=== PATIENT | male | born 1940 | race Caucasian/White ===

== ENCOUNTER 2024-05-31 03:42 | Inpatient (IN) | payer OTHER, SELFPAY ==
[2024-05-30 23:43] VITALS: BP 175/78
[2024-05-31] VITALS (14 sets, daily range): BP systolic 117–156; BP diastolic 54–73; PULSE 55; O2SAT 97; BMI 27.8
[2024-05-31] MEDS: NSS 500 IV (00:23)
[2024-05-31 00:37] LABS: % Basophils 0.7 % (0-2); % Eosinophils 3.7 % (0-6); % Immature Granulocytes 2.3 % (0-0.5); % Lymphocytes 14.4 % (20.5-51.1); % Monocytes 7.5 % (1.7-9.3); % Neutrophils 71.4 % (42.2-75.2); Absolute Basophils 0.1 10^3/uL (0-0.2); Absolute Eosinophils 0.5 10^3/uL (0-0.7); Absolute Immature Granulocytes 0.3 10^3/uL (0-0.05); Absolute Lymphocytes 1.8 10^3/uL (1.2-3.4); Absolute Monocytes 0.9 10^3/uL (0.1-0.6); Absolute Neutrophils 8.7 10^3/uL (1.4-6.5); Hematocrit 42.4 % (39.0-52.0); Hemoglobin 15.3 g/dL (13.0-18.0); Mean Corp Hgb Conc. 36.1 g/dL (33.0-37.0); Mean Corpuscular Hgb 31.1 pg (27.0-31.0); Mean Corpuscular Volume 86.2 fL (80.0-94.0); Mean Platelet Volume 10.5 fL (7.4-10.4); Nucleated Red Blood Cells % 0 % (-); Platelet Count 185 10^3/uL (130-400); Red Blood Cell Count 4.92 10^6/uL (4.70-6.10); Red Cell Dist. Width 12.8 % (11.5-14.5); White Blood Cell Count 12.2 10^3/uL (4.8-10.8)
--- NOTE | 2024-05-31 00:40 | EDRN ---
Pt had vomiting and diarrhea 1 week and has been feeling well the past few days. Pt says he notes he has been weak with decreased appetite. Pt was watching the Superbowl and suddenly developed R side abdominal pain radiating into his back. Pain
is dull and constant. Pt took 3 ibuprofen and couple sips of Gatorade. Pt had 'a little' BM tonight and says last normal BM was 2 days ago. Nausea, no vomiting. Pt notes when he urinates it is 'a little orange.' No hx similar symptoms. Pt
denies cp, sob, fever/chills/cough, diarrhea, constipation, dizziness.
--- NOTE | 2024-05-31 00:49 | ED.GENMED ---
History of Present Illness
General
Chief Complaint: Abdominal Pain
Source: patient and spouse
Exam Limitations: none
Time Seen by Provider: 05/30/24 23:52
History of Present Illness
History of Present Illness:
83-year-old male complaining of abdominal pain with some radiation to the right side and back. Started late this afternoon. Feels generally weak. No chest pain shortness of breath no syncope. No change in bowels. Last week he had the norovirus.
The symptoms had mostly resolved.
Past History
Past History
ED Past Medical History: HTN, Hypercholesterolemia and NIDDM
ED Past Surgical History: Orthopedic
Review of Systems
Review of Systems
All Other Systems: Not applicable
Constitutional: Denies fever
Respiratory: Reports no symptoms
Cardiac: Reports no symptoms
Phy Exam
Physical Exam
Physical Exam:
GENERAL: Alert and oriented in no apparent distress
EYE: Orbits normal.
NECK: Supple
CARDIAC: Regular rate and rhythm without any obvious murmurs.
LUNGS: Clear breath sounds,normal
ABDOMEN: Soft, mild epigastric tenderness. No rebound or guarding no mass or hernia
NEUROLOGICAL: Alert and oriented , grossly non-focal
SKIN: Warm and dry, no rash or lesion, no discoloration, skin intact.
MUSCULOSKELETAL: No edema,no deformity.Good color
PSYCH: Normal and appropriate interaction.
Course
Orders/Labs/Results
Orders:
Orders
05/30/24 23:52
IV Insert/Care/Rem.- Treatment PRN
Complete Blood Count/With Diff Urgent
Urinalysis Reflex To Culture Urgent
Date Specimen was Collected: 05/31/24
Time Specimen was Collected: 04:06
0.9% Sodium Chloride 500 ml [Nss] 500 ml IV BOLUS
05/31/24 00:02
CT Abd/Pel (IV only)-DH only Urgent
Reason For Exam: Lower abdominal pain
05/31/24 00:10
Electrocardiogram (*1) Stat
Reason for Study: Abdominal Pain
EKG- Treatment ONCE
05/31/24 01:00
HYDROmorphone [Dilaudid] 0.25 mg IV NOW STA
Ondansetron Injectable [Zofran] 4 mg IV NOW STA
05/31/24 01:05
Comprehensive Metabolic Panel Urgent
Lipase Urgent
TSH Reflex To Free T4 Urgent
Comment: ADD ON
05/31/24 02:26
HYDROmorphone [Dilaudid] 0.25 mg IV NOW STA
Piperacillin/Tazo 3.375 Gram [Zosyn] 3.375 gram in 50 ml IV NOW
05/31/24 03:23
Admit/Transfer Patient As Directed
Co-Sign Provider:
Level of Care: Inpatient admission
Assign to:: Telemetry
Physician / Group: Nacho
Diagnosis: Abd Pain / Cholelithiasis
Reason for Telemetry: Arrhythmia
Date to Stop Telemetry: 06/03/24
Time to Stop Telemetry: 11:00
Reason for Hospitalization: Abd Pain / Cholelithiasis
Expected length of stay greater than two midnights?: Yes
ELOS- Estimated Length of Stay in days: 2
I certify the patient meets the requirements for IP care: Yes
PRN Pain Medication Management As Directed
May give lesser potent ordered pain med per pt: Yes
preference::
Protocol:: Medication orders for pain may be administered in a
manner that supports deferring to patient preference
when the pt is:
- Requesting an ordered lesser potent pain medication.
Least to most potent pain medications are defined
as: acetaminophen < NSAID < tramadol < opioids
(morphine, oxycodone, hydromorphone).
- Requesting a lesser dose of the same medication IF
ORDERED.
- Requesting a less intrusive route of administration
if both routes are prescribed by the provider (PO <
IV).
05/31/24 03:24
Code Status As Directed
Resuscitation Status: Full Code
05/31/24 03:32
Troponin I Urgent
05/31/24 Breakfast
NPO
Allow oral meds: Yes
Allow clear liquids: Sips of Clears
Levothyroxine [Synthroid] 75 mcg PO DAILY@0600
05/31/24 06:06
Acetaminophen [Tylenol] 650 mg PO Q4HPRN PRN
Dextrose 50%-Water [Dextrose 50% Syringe] 12.5 grams IV [id number] PRN
Glucagon [GlucaGen] 1 mg IM PRN PRN
HYDROmorphone [Dilaudid] 0.5 mg IV Q4HPRN PRN
Lactated Ringers [Lr] 1,000 ml IV 100 mls/hr
Ondansetron Injectable [Zofran] 4 mg IV Q6HPRN PRN
05/31/24 06:06
Activity As Directed
Activity Level: Ambulate
With Assistance
Bedside Glucose Monitoring As Directed
Frequency: AC&HS
Additional Instructions:: Change to q6h if pt on TPN, tube feeding or not eating
Bladder Scan As Directed
Follow Bladder Retention/Intermittent Cath Algorithm?: Yes
PRN if no void in __ hours: 6
Frequency: Per Retention Algorithm
If Bladder Scan Result >: 400
then:: Straight cath
EKG with chest pain [ECG as needed] As Directed
ECG as needed for:: Chest Pain
I/O [Intake/ Output] As Directed
Frequency: Per unit guidelines
Pneumatic Compression Sleeves As Directed
Type: Knee high
Straight Cath As Directed
Frequency: Per Retention Algorithm
Additional Instructions: straight cath as needed per acute urinary retention algorithm for 24 hrs
Additional Instructions: for bladder scan greater than 400 mL
Vital Signs As Directed
Frequency: Per unit guidelines
Weight As Directed
Frequency: Daily
Oxygen Therapy [O2 Therapy] [RESP] Routine
Titrate/Wean O2 to maintain O2 sat greater than (%): 94
Ot Eval And Treat Routine
PT Consult [Pt Eval And Treat] Routine
Activity Level: Ambulate
With Assistance
DX Deep Vein Thrombosis Video Routine
05/31/24 07:30
Insulin Aspart Corrective Low [Novolog Flexpen-Low Resistance] See Protocol SC AC
05/31/24 08:00
Pantoprazole [Protonix IV] 40 mg IV DAILY
05/31/24 10:00
Piperacillin/Tazo 2.25 Gram [Zosyn] 2.25 grams in 50 ml IV Q6H
06/01/24 05:13
Glycohemoglobin (HgbA1c) IN AM
06/03/24 11:00
DC Protocol for Telemetry ONCE
Abnormal Lab Results
05/31/24 05/31/24
00:21 01:05
WBC 12.2 H 10^3/uL
(4.8-10.8)
MCH 31.1 H pg
(27.0-31.0)
MPV 10.5 H fL
(7.4-10.4)
Abs Immat Gran (auto) 0.3 H 10^3/uL
(0-0.05)
Absolute Neuts (auto) 8.7 H 10^3/uL
(1.4-6.5)
Absolute Monos (auto) 0.9 H 10^3/uL
(0.1-0.6)
Immature Gran % 2.3 H %
(0-0.5)
Lymphocytes % 14.4 L %
(20.5-51.1)
Creatinine 1.7 H mg/dL
(0.7-1.3)
Glucose 127 H mg/dl
(70-99)
Albumin 3.4 L g/dl
(3.5-5.0)
Lipase 429 H U/L
(23-300)
05/31/24 00:21
05/31/24 01:05
Vital Signs
Initial and Last Documented VS:
Initial Vital Signs
Temp Pulse Resp BP Pulse Ox
98.7 F 50 20 175/78 98
05/30/24 23:43 05/30/24 23:43 05/30/24 23:43 05/30/24 23:43 05/30/24 23:43
Last Documented Vital Signs
Temp Pulse Resp BP Pulse Ox
97.6 F 56 16 113/52 95
06/02/24 11:20 06/02/24 11:20 06/02/24 11:20 06/02/24 11:20 06/02/24 11:20
MDM/Problems Addressed
Differential Diagnosis Includes:
Patient with right-sided abdominal pain radiating to the back. Differential would include enteritis, cholecystitis. Doubt appendicitis. Kidney stone in the differential. Doubt vascular issue. Workup in progress
*Radiology
Radiology exam reviewed: radiology read reviewed (No acute findings on CT. Gallstones.)
*Pulse Oximetry
Patient hypoxic: no
*EKG
Interpreted by ED Provider?: Yes
Interpretation: abnormal
Comparison EKG: no comparison EKG present
Heart Rate: 50
Rate: bradycardiac
Rhythm: sinus
[place]: normal axis
Interval: normal interval
QRS Pattern: normal QRS
Ischemia: no ischemia
*Critical Care Note
Total Time (30-74mins, 75-104mins- exclusive of procedures): Not Applicable
Data Reviewed
Review of Other/Old Records Reveals: Labs and Testing
Update Note
Update Note:
Patient with ongoing discomfort pointing to the upper abdomen with some radiation to the back. Although CT scan does not show acute cholecystitis. He does have gallstones, leukocytosis, mild lipase elevation and symptoms consistent with a
cholecystitis. Will admit for pain management IV antibiotics and further workup. Will check troponin for completeness however highly doubt cardiac
ED Attending Note
-
Portions of this chart may have been created with voice recognition software.� Occasional wrong word or��sound alike� substitutions may have occurred due to the inherent limitations of voice recognition software.
Discharge Plan
Departure
Patient Disposition: Admit
Date of Disposition: 05/31/24
Time of Disposition: 02:28
Presentation/result/management discussed w/ accepting MD/DO: Hospitalist
Discharge Problem:
Intractable abdominal pain, Suspect acute cholecystitis
Interventions
Interventions:
*Risk Screen - Suicide Last Done: 05/31/24 08:00
*General Assessment Last Done: 05/30/24 23:43
*Neglect/Abuse Screening Last Done: 05/30/24 23:43
ED- Fall Risk Assessment Last Done: 05/30/24 23:43
*ED COVID-19 Vaccine History Last Done: 05/31/24 08:00
*Nursing Disposition Last Done: 05/31/24 08:03
GC-Eiqhtq-Oucgboqhyf Assessment Last Done: 05/31/24 00:36
Discharge Date and Time
Discharge Date/Time: 05/31/24 08:03
[2024-05-31] MEDS: ZOFRAN 4 MG IV (01:08)
[2024-05-31] MEDS: DILAUDID 0.25 MG IV ×2 (01:09→02:34)
[2024-05-31 01:36] LABS: ALT (SGPT) 29 U/L (0-50); AST (SGOT) 22 U/L (17-59); Albumin 3.4 g/dl (3.5-5.0); Alkaline Phosphatase 74 U/L (38-126); Blood Urea Nitrogen 20 mg/dl (9-20); Calcium 8.8 mg/dl (8.4-10.2); Carbon Dioxide 27 mmol/L (22-30); Chloride 106 mmol/L (98-107); Estimated Creatinine Clearance 32 ml/min; Glucose 127 mg/dl (70-99); Lipase 429 U/L (23-300); Potassium 4.2 mmol/L (3.5-5.1); Sodium 138 mmol/L (135-145); Total Bilirubin 0.5 mg/dl (0.2-1.3); Total Protein 6.3 g/dl (6.3-8.2); eGFR 39.51
[2024-05-31] MEDS: ZOSYN 50 IV ×4 (02:44→21:20)
--- NOTE | 2024-05-31 03:26 | HPS.HSE ---
Family Physician
-
Family Physician: Elijah Dale
Chief Complaint
-
Abd Pain
History of Present Illness
Patient is an 83y M with PMH significant for hypertension and DM-II who presents to ED complaining of abdominal pain. Patient states that his pain started suddenly this evening. Pain is described as belt around his upper abdomen and mid-back,
just under the ribs. He denies any N/V this evening. Patient states that he had GI symptoms last week with N/V/D. These symptoms resolved about 2 days ago. He has not yet had a 'normal' BM. No fevers / chills. No urinary complaints.
Patient continues to report discomfort here in the ED.
CT scan was done of the abdomen / pelvis which shows gallstones but is otherwise unremarkable.
Medical History
Past Medical History
Past Medical History: Reports Other
Additional Past Medical History:
Hypertension
DM-II
Hypothyroidism
GERD / Howard's Esophagus
CKD III
Mild Dementia
Past Surgical History: Reports Other
Additional Past Surgical History:
Right TKA
Social History
Tobacco: Non-smoker
Alcohol: None
Drug: None
Family History
Family History: Not pertinent
Allergies / Home Medications
Allergies reflects when Allergies were last updated in [email or web address].
Home Medications with original date entered in [email or web address]
Allergy/Medication List:
Allergies
Allergy/AdvReac Type Severity Reaction Status Date / Time
empagliflozin Allergy Unknown Verified 05/30/24 23:42
[From Jardiance]
epinephrine Allergy Unknown Verified 05/30/24 23:42
Sympathomimetic A Allergy Vomiting Verified 05/30/24 23:42
*RETIRED-12/04/11
tropicamide Allergy Unknown Verified 05/30/24 23:42
Home Medications
donepezil 10 mg tablet 10 mg PO QPM 05/31/24
glipizide 2.5 mg tablet 2.5 mg PO QPM 05/31/24
levothyroxine 75 mcg tablet 75 mcg PO DAILY 05/31/24
metoprolol tartrate 25 mg tablet 25 mg PO BID 05/31/24
pravastatin 40 mg tablet 40 mg PO HS 05/31/24
Review of Systems
-
History Source: Patient
A 12 point ROS was completed and negative except as noted: Yes
Constitutional: Reports Fatigue; Denies Fever or Chills
Respiratory: Denies Cough or Trouble Breathing
Cardiac: Denies Chest Pain or Palpitations
Abdomen/GI: Reports Abdominal Pain; Denies Nausea, Vomiting, Diarrhea, Constipated, Bloody Stools or Black Stools
: Reports Flank Pain; Denies Dysuria or Frequency
Musculoskeletal: Denies Edema
Neurological: Denies Dizzy or Headache
Physical Exam
Vital Signs
Vital Signs
Temp Pulse Resp BP Pulse Ox
98.7 F 46 16 128/57 96
05/30/24 23:43 05/31/24 03:00 05/31/24 02:34 05/31/24 03:00 05/31/24 03:00
Physical Exam
General: Other (83y M in no acute distress.)
HEENT: Moist mucous membranes and PERRLA
Respiratory: Clear; No Wheezes, Rales or Rhonchi
Cardiac: S1/S2 and Regular Rhythm; No Murmur
GI: Soft, Non Distended, Normal Bowel Sounds and Other (Mildly, diffusely tender. No focal tenderness. No rebound / guarding.)
Genito-urinary: No costovertebral tender
Musculoskeletal: No Clubbing, No Cyanosis and No Edema
Neuro: Awake and Alert
Laboratory Results
-
05/31/24 00:21
05/31/24 01:05
Laboratory Results
Total Bilirubin 0.5 mg/dl (0.2-1.3) 05/31/24 01:05
AST 22 U/L (17-59) 05/31/24 01:05
ALT 29 U/L (0-50) 05/31/24 01:05
Alkaline Phosphatase 74 U/L (38-126) 05/31/24 01:05
Troponin I Cancelled 05/31/24 02:34
Lipase 429 U/L (23-300) H 05/31/24 01:05
Impression/Plan
-
A/P: Patient is an 83y M with PMH significant for HTN and DM-II who presents to ED complaining of abdominal pain.
Abdominal Pain
Cholelithiasis
Recent Enteritis
- Admit for further evaluation and treatment.
- Labs unremarkable. Imaging shows gallstones but no other acute abnormality.
- Check abdominal US / RUQ in AM for further evaluation.
- Continue IV Zosyn for now.
- Supportive care with IVFs, pain control, etc.
- Follow for clinical changes.
Sinus Bradycardia
- Likely medication effect on metoprolol and donepezil.
- Hold both for now.
- Monitor on tele overnight.
Benign Hypertension
- Hold metoprolol acutely as noted above.
- Hydralazine PRN very high BP.
- Adjust regimen as needed for normotension.
DM-II
- Stable. Hold PO medications.
- Follow glucose and cover with SSI as needed.
- Update A1C.
CKD III
- Stable. Renal function is at / near known baseline.
- Outpatient records report baseline 1.5 - 1.8.
- Follow for any changes.
GERD / Howard's Esophagus
- Once daily PPI.
Mild Dementia
- Stable. Holding Aricept due to sinus bradycardia as noted above.
- Follow for any acute changes, delirium, etc.
DVT Prophylaxis: SCDs
Code Status: Full
[2024-05-31 04:21] LABS: Urine Bilirubin Negative (Negative); Urine Character Clear (Clear); Urine Color Yellow; Urine Glucose Negative (Negative); Urine Ketone Negative (Negative); Urine Leukocyte Negative (Negative); Urine Nitrite Negative (Negative); Urine Occult Blood Negative (Negative); Urine Specific Gravity 1.015 (<1.030); Urine Urobilinogen Negative (Neg - 1+)
[2024-05-31 04:24] LABS: Urine Albumin Trace (Neg - Trace)
[2024-05-31 04:32] LABS: Troponin I < 0.012 ng/ml
[2024-05-31] MEDS: LR 1000 IV (06:22)
[2024-05-31] MEDS: DILAUDID 0.5 MG IV ×2 (06:26→10:08)
[2024-05-31 07:10] LABS: TSH Reflex To Free T4 3.17 uIU/ml (0.47-4.68)
[2024-05-31] MEDS: SYNTHROID 75 MCG PO (07:47)
[2024-05-31 08:14] LABS: Glucose - Point of Care 131 mg/dl (70-99)
[2024-05-31] MEDS: PROTONIX IV 40 MG IV (08:17)
[2024-05-31] MEDS: NSS (PRESERVATIVE FREE) 10 ML IV (08:17)
[2024-05-31] MEDS: NOVOLOG FLEXPEN-LOW RESISTANCE SC ×3 (08:17→17:15)
[2024-05-31 12:22] LABS: Glucose - Point of Care 117 mg/dl (70-99)
--- NOTE | 2024-05-31 12:34 | CM ---
Adm dx - ABD pain/cholelithiasis
Met with pt and his at bedside
Pt reports he lives with his in a 2 story home; 1 step to enter. 13 steps to 2nd fl - + 1/2 bath on FF
Independent at baseline,occasionally forgetful, no device for ambulation, + drives
DME - none
SNF - denies past hx
HH - has had in past - unsure of agency
Has ride home at discharge
PCP - Elijah Debnotsophie
Pharm - [facility]
Sx consult - pending determination
Plan - anticipate home no needs vs w/HH
--- NOTE | 2024-05-31 12:43 | CON.GS ---
Addendum entered and electronically signed by Tom Dowling MD 05/31/24 12:55:
Patient seen and examined. Agree with assessment plan as documented below.
Patient is a 83 with a PMH of yo M mild dementia, GERD, HLD, hypothyroidism, NIDDM, and s/p RIGHT TKA who presents with approximately 24 hours of RUQ abdominal pain. Mr. Taylor states that he developed symptoms yesterday evening around 10 PM. He
notes a bandlike pressure and discomfort in his upper abdomen radiating to his back. Last week he had a GI bug with nausea and vomiting and diarrhea, but states that his symptoms improved for several days now. No fevers or chills. Denies any
jaundice or pale stools. He does report darker urine. He and his deny prior attacks of similar pain or discomfort.
Gen: NAD
Abd: soft, tender to palpation in the RUQ, positive Kat's sign, ND, non-peritoneal
Labs and CT scan imaging were reviewed
Patient is an 83 yo M p/w acute cholecystitis
The natural history and pathophysiology of biliary and stone disease was briefly reviewed. Workup thus far including labs and CT scan imaging was reviewed. Given his persistent discomfort recommend cholecystectomy. Patient and agree to
proceed.
Plan for laparoscopic cholecystectomy with possible cholangiogram. The procedure itself, as well as the risks, benefits, and alternatives was discussed. Specifically, we discussed the risks of bleeding, infection, injury to surrounding structures
(bowel, bile ducts), CBD injury, need for open procedure. Typical postprocedural recovery was discussed. All questions answered. Consent signed. Of note, was present for the encounter and agrees to proceed with above-noted procedure.
-- Laparoscopic cholecystectomy with cholangiogram
-- NPO, IVF
-- Antibiotics: Zosyn
-- Pain control: Tylenol, IV Dilaudid PRN
Original Note:
Medical History
-
Chief Complaint: RUQ pain
History of Present Illness:
Mr Taylor is an 83 yo male with a history of DM, hypothyroid, CKD and right TKA who presented through the ED with RUQ pain which began last night around 10pm. He reports that it radiates into his back and is quite severe. He denies nausea or
vomiting, bowel changes or fevers and chills. His is at bedside to assist with history and notes that he had a GI bug last week with nausea, vomiting and diarrhea but his symptoms have been resolved for several days now.
Past Medical History
Past Medical History: GERD (Howard's esophagus), Hypothyroidism, NIDDM and Other (mild dementia)
Past Surgical History: Orthopedic (right TKA)
Social History
Tobacco: Non-Smoker
Alcohol: None
Personal:
Living: With Family
Family History
Family History: Reviewed & Not Pertinent
Allergies / Home Medications
Allergy/AdvReac Type Severity Reaction Status Date / Time
empagliflozin Allergy Unknown Verified 05/30/24 23:42
[From Jardiance]
epinephrine Allergy Unknown Verified 05/30/24 23:42
Sympathomimetic A Allergy Vomiting Verified 05/30/24 23:42
*RETIRED-12/04/11
tropicamide Allergy Unknown Verified 05/30/24 23:42
�Medication �Instructions �Recorded �Confirmed �Type
donepezil 10 mg tablet 10 mg PO QPM 05/31/24 05/31/24 History
glipizide 2.5 mg tablet 2.5 mg PO QPM 05/31/24 05/31/24 History
levothyroxine 75 mcg tablet 75 mcg PO DAILY 05/31/24 05/31/24 History
metoprolol tartrate 25 mg tablet 25 mg PO BID 05/31/24 05/31/24 History
pravastatin 40 mg tablet 40 mg PO HS 05/31/24 05/31/24 History
Review of Systems
-
History Source: Patient and Family
All other systems: Negative unless noted
A 10 point review of systems was completed, and was negative except as per HPI.
Physical Exam
Vital Signs
Temp Pulse Resp BP Pulse Ox
97.9 F 54 16 143/68 94
05/31/24 10:55 05/31/24 10:55 05/31/24 10:55 05/31/24 08:00 05/31/24 10:55
05/30/24 05/31/24 06/01/24
06:59 06:59 06:59
Actual Weight 83 kg
Body Mass Index (BMI) 27.8
Lab Results
05/31/24 00:21
05/31/24 01:05
WBC 12.2 10^3/uL (4.8-10.8) H 05/31/24 00:21
Hgb 15.3 g/dL (13.0-18.0) 05/31/24 00:21
Hct 42.4 % (39.0-52.0) 05/31/24 00:21
Plt Count 185 10^3/uL (130-400) 05/31/24 00:21
Abs Immat Gran (auto) 0.3 10^3/uL (0-0.05) H 05/31/24 00:21
Neutrophils % 71.4 % (42.2-75.2) 05/31/24 00:21
Physical Exam
General: Well Developed and Well Nourished
HEENT: Moist Mucous Membranes
Respiratory: Non Labored Respirations
GI: Soft, Non Distended and Tender (RUQ)
Skin: Warm and Dry; Negative Jaundice
Neuro: Awake, Alert and Other (poor historian)
Data Reviewed
-
CT Scan: Image Personally Visualized and interpreted, Report Reviewed by me, Discussed with Physician, Discussed with Patient and Discussed with Family
Labs: Labs Reviewed by me, Discussed with Physician, Discussed with Patient and Discussed with Family
Old Records: Reviewed
Assessment / Plan
-
83 yo male with a history of DM, HTN, hypothyroid who presents with RUQ pain that began yesterday and radiates into his mid back. On exam he is markedly tender to the RUQ. Leukocytosis present with normal bilirubin. CT imaging reviewed with
gallstones noted. Given history and exam as well as CT imaging, suspect acute calculous cholecystitis. Afebrile with stable vital signs.
Will plan OR today for laparoscopic cholecystectomy
--Continue NPO
--Continue IV ABX
--No need for further imaging, will cancel US
--- NOTE | 2024-05-31 12:47 | W.SUR.PREOP ---
Pre-Operative Surgical Note
-
I have examined this patient prior to the performance of the scheduled procedure.
The patient's condition is unchanged from the time of the current History and
Physical and the patient is able to undergo the scheduled procedure.
--- NOTE | 2024-05-31 15:46 | W.IMMPOSTOP ---
Addendum entered and electronically signed by Tom Dowling MD 05/31/24 16:06:
Plan:
-- Antibiotics for 4 days post-op
-- Drain in place for at least 2 days
-- Clears for today, possible LFD tomorrow pending clinical picture
Original Note:
Surgical Immed Post Op Note
-
Primary Surgeon: Nitesh
Assisting Surgeon: BRITNEY Armenta
Pre-op Diagnosis: Acute cholecystitis
Post-op Diagnosis: Acute gangrenous cholecystitis
Procedure Performed: Laparoscopic cholecystectomy with IOC
Anesthesia Type: General
Specimen / Cultures:
1. Gallbladder
Estimated Blood Loss: 7 cc
Complications: None
Operative Findings:
1. Acutely inflamed, gangrenous GB with patchy necrosis and bile staining along entire wall, multiple small cholesterol stones
2. Critical view of safety
3. IOC with anatomy confirmed and no obvious evidence of filling defects
4. Artery and venous branch taken with clips, duct with clips
--- NOTE | 2024-05-31 15:50 | W.PN.HOSP.TC ---
Today's Communication/Plan
-
For upper scopic cholecystectomy with cholangiogram
Continue antibiotics
Remains n.p.o.
IV fluids
Analgesia
Hold oral glucose lowering medications
Assessment / Plan
Assessment / Plan
Impression/plan
Patient is an 83y M with PMH significant for HTN and DM-II who presents to ED complaining of abdominal pain.
Acute onset of right upper quad abdominal pain.
Exam consistent with right upper quadrant tenderness
CT scan with cholelithiasis
Noted with very mildly elevated lipase and normal LFT.
Clinical concern for biliary colic or acute cholecystitis.
Discussed with surgery.
Plan is for laparoscopic cholecystectomy with cholangiogram.
Continue IV Zosyn
Recent norovirus infection noted.
Sinus Bradycardia
- Likely medication effect on metoprolol and donepezil.
- Hold both for now.
- Monitor on tele overnight.
Benign Hypertension
- Hold metoprolol acutely as noted above.
- Hydralazine PRN very high BP.
- Adjust regimen as needed for normotension.
DM-II
- Stable. Hold PO medications.
- Follow glucose and cover with SSI as needed.
- Update A1C.
CKD III
- Stable. Renal function is at / near known baseline.
- Outpatient records report baseline 1.5 - 1.8.
- Follow for any changes.
GERD / Howard's Esophagus
- Once daily PPI.
Mild Dementia
- Stable. Holding Aricept due to sinus bradycardia as noted above.
- Follow for any acute changes, delirium, etc.
DVT Prophylaxis: SCDs
Code Status: Full
Anticipated Discharge: 24 - 48 hours
Subjective/Interval History
-
Date of Service: May 31, 2024
Objective Data
-
Vital Signs:
Vital Signs
Temp Pulse Resp BP Pulse Ox
97.9 F 54 16 143/68 94
05/31/24 10:55 05/31/24 10:55 05/31/24 10:55 05/31/24 08:00 05/31/24 10:55
Physical Exam
-
General: Well Developed and No Apparent Distress
HEENT: Normocephalic, Atraumatic and Moist Mucous Membranes
Respiratory: Clear to Auscultation
Cardiac: Regular Rhythm and S1/S2; Negative Murmur, Rub or Gallop
GI: Soft, Nondistended, Normal Bowel Sounds and Tender (Right upper quadrant tenderness); Negative Organomegaly
Rectal: Deferred by Provider
Musculoskeletal: No Clubbing, No Cyanosis and No Edema
Skin: Negative Rash
Neuro: Nonfocal/Grossly Intact
[2024-05-31 15:58] LABS: Glucose - Point of Care 160 mg/dl (70-99)
[2024-05-31] MEDS: NSS 1000 IV (17:04)
[2024-05-31] MEDS: LOPRESSOR 5 MG IV (17:05)
[2024-05-31 17:10] LABS: Glucose - Point of Care 192 mg/dl (70-99)
[2024-05-31] MEDS: LR IV (17:38)
[2024-05-31] MEDS: PRAVACHOL 40 MG PO (21:20)
[2024-05-31 21:31] LABS: Glucose - Point of Care 166 mg/dl (70-99)
[2024-06-01] VITALS (9 sets, daily range): BP systolic 109–150; BP diastolic 50–80; BMI 27.9
[2024-06-01] MEDS: LOPRESSOR IV ×2 (00:15→06:06)
[2024-06-01] MEDS: NSS 1000 IV ×2 (02:52→15:36)
[2024-06-01] MEDS: ZOSYN 50 IV ×4 (03:05→21:44)
[2024-06-01] MEDS: SYNTHROID 75 MCG PO (05:22)
[2024-06-01 05:44] LABS: % Basophils 0.1 % (0-2); % Eosinophils 0.1 % (0-6); % Immature Granulocytes 0.6 % (0-0.5); % Lymphocytes 8.4 % (20.5-51.1); % Monocytes 7.4 % (1.7-9.3); % Neutrophils 83.4 % (42.2-75.2); Absolute Immature Granulocytes 0.1 10^3/uL (0-0.05); Absolute Lymphocytes 1.3 10^3/uL (1.2-3.4); Absolute Monocytes 1.1 10^3/uL (0.1-0.6); Absolute Neutrophils 12.6 10^3/uL (1.4-6.5); Hematocrit 38.6 % (39.0-52.0); Hemoglobin 13.4 g/dL (13.0-18.0); Mean Corp Hgb Conc. 34.7 g/dL (33.0-37.0); Mean Corpuscular Hgb 30.7 pg (27.0-31.0); Mean Corpuscular Volume 88.5 fL (80.0-94.0); Mean Platelet Volume 10.6 fL (7.4-10.4); Nucleated Red Blood Cells % 0 % (-); Platelet Count 173 10^3/uL (130-400); Red Blood Cell Count 4.36 10^6/uL (4.70-6.10); Red Cell Dist. Width 12.8 % (11.5-14.5); White Blood Cell Count 15.1 10^3/uL (4.8-10.8)
[2024-06-01 06:09] LABS: ALT (SGPT) 32 U/L (0-50); AST (SGOT) 31 U/L (17-59); Alkaline Phosphatase 44 U/L (38-126); Blood Urea Nitrogen 18 mg/dl (9-20); Calcium 8.7 mg/dl (8.4-10.2); Carbon Dioxide 23 mmol/L (22-30); Chloride 104 mmol/L (98-107); Direct Bilirubin 0.3 mg/dl (0.0-0.4); Estimated Creatinine Clearance 34 ml/min; Glucose 135 mg/dl (70-99); Lipase 337 U/L (23-300); Potassium 4.3 mmol/L (3.5-5.1); Sodium 135 mmol/L (135-145); Total Protein 5.6 g/dl (6.3-8.2); eGFR 42.49
--- NOTE | 2024-06-01 07:56 | W.PN.GS2 ---
Today's Communication / Plan
-
-- LFD
-- Maintain IVF for kidney protection and while assessing dietary tolerance
-- Abx: Zosyn, would plan for 4 days total treatment
-- DVT: SQH given CKD
-- Maintain MARIA TERESA, tentative plan for DC tomorrow
Assessment / Plan
-
Patient is an 83 yo M p/w acute cholecystitis POD#1 s/p laparoscopic cholecystectomy with IOC
AVSS
Labs notable for reactive leukocytosis, normal LFTs, bilirubin, ALP, stable CKD
Recovering well. No major postop concerns. Plan to monitor in the hospital setting for additional IV antibiotics, drain management, and monitoring of dietary tolerance for the next 24 hours.
-- LFD
-- Pain control: Tylenol, Tramadol
-- Maintain IVF for kidney protection and while assessing dietary tolerance
-- Abx: Zosyn, would plan for 4 days total treatment
-- Home meds
-- DVT: SQH given CKD
-- Maintain MARIA TERESA, tentative plan for DC tomorrow
-- OOB/ambulate
Subjective Data
-
Date of Service: June 01, 2024
No complaints. Pain well-controlled. No nausea or vomiting. No fevers.
Objective Data
-
Intake and Output
05/31/24 06/01/24 06/02/24
06:59 06:59 06:59
Intake Total 1540 / 1540
Output Total 30 / 30
Balance 1510 / 1510
Intake:
Oral fluids 240 / 240
IV fluids (Total) 1200 / 1200
IV piggybacks 100 / 100
Output:
Drain Output (Total) 30 / 30
Right Lower Abdomen 30 / 30
Other:
Number of approximated MODERATE 3
amounts of urine
Vital Signs
Temp Pulse Resp BP Pulse Ox
98.1 F 59 16 116/61 93
06/01/24 07:19 06/01/24 07:19 06/01/24 07:19 06/01/24 07:19 06/01/24 07:19
Lab Results
06/01/24 05:13
06/01/24 05:13
Calcium 8.7 mg/dl (8.4-10.2) 06/01/24 05:13
Total Bilirubin 1.0 mg/dl (0.2-1.3) 06/01/24 05:13
Direct Bilirubin 0.3 mg/dl (0.0-0.4) 06/01/24 05:13
AST 31 U/L (17-59) 06/01/24 05:13
ALT 32 U/L (0-50) 06/01/24 05:13
Alkaline Phosphatase 44 U/L (38-126) 06/01/24 05:13
Total Protein 5.6 g/dl (6.3-8.2) L 06/01/24 05:13
Albumin 3.0 g/dl (3.5-5.0) L 06/01/24 05:13
Physical Exam
-
Gen: NAD
Abd: soft, minimal tenderness, ND, non-peritoneal, incisions c/d/i - no erythema, ecchymosis or drainage, MARIA TERESA thin sanguinous fluid, non-bilious
Patient has a savage catheter: No
Patient has a central line: No
[2024-06-01 08:20] LABS: Glucose - Point of Care 114 mg/dl (70-99)
[2024-06-01] MEDS: PROTONIX IV 40 MG IV (08:33)
[2024-06-01] MEDS: NSS (PRESERVATIVE FREE) 10 ML IV (08:33)
[2024-06-01] MEDS: NOVOLOG FLEXPEN-LOW RESISTANCE SC ×2 (08:34→17:41)
[2024-06-01] MEDS: ULTRAM 25 MG PO (08:41)
[2024-06-01 08:43] LABS: Glycohemoglobin (HgbA1c) 6.3 % (4.0-5.6)
[2024-06-01] MEDS: LOPRESSOR PO (11:02)
[2024-06-01 12:44] LABS: Glucose - Point of Care 154 mg/dl (70-99)
[2024-06-01] MEDS: NOVOLOG FLEXPEN-LOW RESISTANCE 1 UNITS SC (13:13)
--- NOTE | 2024-06-01 15:16 | W.PN.HOSP.TC ---
Today's Communication/Plan
-
Postoperative care per
Low-fat diet
Wean off IV fluids.
Resume beta-jimi.
Continue antibiotics
Assessment / Plan
Assessment / Plan
Impression/plan
Patient is an 83y M with PMH significant for HTN and DM-II who presents to ED complaining of abdominal pain.
Acute onset of right upper quad abdominal pain.
Exam consistent with right upper quadrant tenderness
CT scan with cholelithiasis
Noted with very mildly elevated lipase and normal LFT.
Status post laparoscopic cystectomy with intraoperative cholangiogram. With findings of gangrenous cholecystitis
Doing well postoperatively
Diet has been advanced to low-fat pain
Wean off IV fluids
Continue antibiotics/Zosyn for total of 4 days
Increase activity
Recent norovirus infection noted.
Sinus Bradycardia. Monitor for recurrent. Resume beta-jimi
Continue donepezil
Benign Hypertension
- Hold metoprolol acutely as noted above.
- Hydralazine PRN very high BP.
- Adjust regimen as needed for normotension.
DM-II
- Stable. Plan is to resume oral glucose lowering medications once tolerates diet
- Follow glucose and cover with SSI as needed.
- Update A1C 6.3
CKD III
- Stable. Renal function is at / near known baseline.
- Outpatient records report baseline 1.5 - 1.8.
- Follow for any changes.
GERD / Howard's Esophagus
- Once daily PPI.
Mild Dementia
- Stable. Holding Aricept due to sinus bradycardia as noted above.
- Follow for any acute changes, delirium, etc.
DVT Prophylaxis: SCDs
Code Status: Full
Anticipated Discharge: 24 - 48 hours
Subjective/Interval History
-
Date of Service: June 01, 2024
Objective Data
-
Labs:
Laboratory Results
06/01/24
05:13
WBC 15.1 H
Hgb 13.4
Hct 38.6 L
Plt Count 173
Sodium 135
Potassium 4.3
Chloride 104
Carbon Dioxide 23
BUN 18
Creatinine 1.6 H
Glucose 135 H
Calcium 8.7
Total Bilirubin 1.0
AST 31
ALT 32
Alkaline Phosphatase 44
Vital Signs:
Vital Signs
Temp Pulse Resp BP Pulse Ox
97.5 F 62 16 114/60 95
06/01/24 11:12 06/01/24 11:12 06/01/24 11:12 06/01/24 11:12 06/01/24 11:12
I&O
05/31/24 06/01/24 06/02/24
06:59 06:59 06:59
Intake Total 1540 / 1540 50 / 50
Output Total 30 / 30
Balance 1510 / 1510 50 / 50
Physical Exam
-
General: Well Developed and No Apparent Distress
HEENT: Normocephalic, Atraumatic and Moist Mucous Membranes
Respiratory: Clear to Auscultation
Cardiac: Regular Rhythm and S1/S2; Negative Murmur, Rub or Gallop
GI: Soft, Nondistended, Normal Bowel Sounds and Tender (Right upper quadrant tenderness); Negative Organomegaly
Rectal: Deferred by Provider
Musculoskeletal: No Clubbing, No Cyanosis and No Edema
Skin: Negative Rash
Neuro: Nonfocal/Grossly Intact
[2024-06-01 17:40] LABS: Glucose - Point of Care 129 mg/dl (70-99)
[2024-06-01] MEDS: ARICEPT 10 MG PO (17:51)
[2024-06-01 21:31] LABS: Glucose - Point of Care 103 mg/dl (70-99)
[2024-06-01] MEDS: HEPARIN 5000 UNITS SC (21:41)
[2024-06-01] MEDS: LOPRESSOR 25 MG PO (21:43)
[2024-06-01] MEDS: PRAVACHOL 40 MG PO (21:44)
[2024-06-02] MEDS: NSS 1000 IV (02:35)
[2024-06-02 03:15] VITALS: BP 112/56
[2024-06-02] MEDS: ZOSYN 50 IV ×2 (04:07→09:06)
[2024-06-02] MEDS: SYNTHROID 75 MCG PO (04:14)
[2024-06-02 05:59] VITALS: BMI 27.8
[2024-06-02 06:24] LABS: % Basophils 0.3 % (0-2); % Eosinophils 5.3 % (0-6); % Immature Granulocytes 0.7 % (0-0.5); % Lymphocytes 20.4 % (20.5-51.1); % Monocytes 11.1 % (1.7-9.3); % Neutrophils 62.2 % (42.2-75.2); Absolute Eosinophils 0.5 10^3/uL (0-0.7); Absolute Immature Granulocytes 0.1 10^3/uL (0-0.05); Absolute Lymphocytes 1.8 10^3/uL (1.2-3.4); Absolute Neutrophils 5.6 10^3/uL (1.4-6.5); Hematocrit 38.5 % (39.0-52.0); Hemoglobin 12.9 g/dL (13.0-18.0); Mean Corp Hgb Conc. 33.5 g/dL (33.0-37.0); Mean Corpuscular Hgb 30.3 pg (27.0-31.0); Mean Corpuscular Volume 90.4 fL (80.0-94.0); Mean Platelet Volume 10.8 fL (7.4-10.4); Nucleated Red Blood Cells % 0 % (-); Platelet Count 181 10^3/uL (130-400); Red Blood Cell Count 4.26 10^6/uL (4.70-6.10); Red Cell Dist. Width 13.3 % (11.5-14.5); White Blood Cell Count 8.9 10^3/uL (4.8-10.8)
[2024-06-02 06:48] LABS: Blood Urea Nitrogen 18 mg/dl (9-20); Calcium 8.4 mg/dl (8.4-10.2); Carbon Dioxide 26 mmol/L (22-30); Chloride 108 mmol/L (98-107); Estimated Creatinine Clearance 32 ml/min; Glucose 95 mg/dl (70-99); Potassium 4.1 mmol/L (3.5-5.1); Sodium 140 mmol/L (135-145); eGFR 39.51
[2024-06-02 07:30] VITALS: BP 125/61
[2024-06-02 08:11] LABS: Glucose - Point of Care 86 mg/dl (70-99)
[2024-06-02] MEDS: NOVOLOG FLEXPEN-LOW RESISTANCE SC ×2 (09:01→13:50)
[2024-06-02] MEDS: HEPARIN 5000 UNITS SC (09:02)
[2024-06-02] MEDS: PROTONIX IV 40 MG IV (09:02)
[2024-06-02] MEDS: NSS (PRESERVATIVE FREE) 10 ML IV (09:02)
[2024-06-02] MEDS: LOPRESSOR PO (09:08)
--- NOTE | 2024-06-02 09:12 | W.PN.GS2 ---
Today's Communication / Plan
-
DC with 3 days PO abx
Assessment / Plan
-
Patient is an 83 yo M p/w acute cholecystitis POD#2 s/p laparoscopic cholecystectomy with IOC
AVSS
Labs notable for reactive leukocytosis, normal LFTs, bilirubin, ALP, stable CKD
Recovering well. No major postop concerns.
-- Cont LFD
-- Pain control: Tylenol, Tramadol
-- HLIV
-- Abx: Zosyn, plan to DC with 3 days of PO abx
-- Home meds
-- DVT: SQH given CKD
-- MARIA TERESA DC'ed
-- OOB/ambulate
- OK for DC home from surgicla standpoint
Subjective Data
-
Date of Service: June 02, 2024
AFVS, ambulating, voiding, to PO, pain controlled, denies n/v
Objective Data
-
Intake and Output
06/01/24 06/02/24 06/03/24
06:59 06:59 06:59
Intake Total 1540 / 1540 2630 / 2630
Output Total 920 / 920
Balance 1510 / 1510 1710 / 1710
Intake:
Oral fluids 240 / 240 1230 / 1230
IV fluids (Total) 1200 / 1200 1200 / 1200
IV piggybacks 100 / 100 200 / 200
Output:
Drain Output (Total) 30 70 / 70
Right Lower Abdomen 30 70 / 70
Urine, Voided 850 / 850
Other:
Number of approximated SMALL 1
amounts of urine
Number of approximated MODERATE 3 2
amounts of urine
Vital Signs
Temp Pulse Resp BP Pulse Ox
97.8 F 56 16 125/61 95
06/02/24 07:30 06/02/24 09:08 06/02/24 07:30 06/02/24 07:30 06/02/24 07:30
Lab Results
06/02/24 05:34
06/02/24 05:34
Calcium 8.4 mg/dl (8.4-10.2) 06/02/24 05:34
Total Bilirubin 1.0 mg/dl (0.2-1.3) 06/01/24 05:13
Direct Bilirubin 0.3 mg/dl (0.0-0.4) 06/01/24 05:13
AST 31 U/L (17-59) 06/01/24 05:13
ALT 32 U/L (0-50) 06/01/24 05:13
Alkaline Phosphatase 44 U/L (38-126) 06/01/24 05:13
Total Protein 5.6 g/dl (6.3-8.2) L 06/01/24 05:13
Albumin 3.0 g/dl (3.5-5.0) L 06/01/24 05:13
Physical Exam
-
Gen: NAd
Abd: soft, approp ttp, drain serous and non-bilious, incisions cdi with glue
Patient has a savage catheter: No
Patient has a central line: No
[2024-06-02 11:14] LABS: Glucose - Point of Care 133 mg/dl (70-99)
[2024-06-02 11:20] VITALS: BP 113/52
--- NOTE | 2024-06-02 12:55 | CM ---
Met with pt and his at bedside
Poss d/c today
Declined VN
Given IMM
to transport home
Plan - home no needs
--- NOTE | 2024-06-02 13:25 | W.DS.TRANS ---
DC Summary - [employer]
-
Discharge Instructions:
Discharge Diagnosis/Procedures Laparoscopic cholecystectomy with cholangiogram
Diet Regular,Low Fat
Additional Diets Eat a low fat diet if you notice loose stools or
crampy abdominal pain after surgery
Activity No strenuous activity
Additional Activity Do not lift over 20 lbs for the next 2-3 weeks
Bathing Restrictions OK to Shower
Wound Care Allow the glue to flake off your wounds over the
next 2-3 weeks on its own. Avoid scrubbing or
picking the glue off. Do not soak in a tub or
swim for the next 2 weeks.
Instructions:
Stand-Alone Forms:
Changes to Home Medications: Yes
Discharge Medications:
DC Medications w/original date entered in [employer]
donepezil 10 mg tablet 10 mg PO QPM 05/31/24
glipizide 2.5 mg tablet 2.5 mg PO QPM 05/31/24
levothyroxine 75 mcg tablet 75 mcg PO DAILY 05/31/24
metoprolol tartrate 25 mg tablet 25 mg PO BID 05/31/24
pravastatin 40 mg tablet 40 mg PO HS 05/31/24
amoxicillin 875 mg-potassium clavulanate 125 mg tablet 1 tab PO BID #7 tabs 06/02/24
tramadol 50 mg tablet 25 mg (1/2 x 50 mg) PO Q6HPRN PRN severe pain #30 tabs 06/02/24
Home Medication Changes
Completing course of antibiotics as outpatient
Pending Results: No
== END 2024-06-02 14:15 | disposition home or self-care (01) | DRG 419 ==
LOC: 2 SOUTH 03:42
PROVIDERS: ADMITTING PHYSICIAN Hospitalist; ATTENDING PHYSICIAN Internal Medicine; CONSULT PHYSICIAN Surgery; EMERGENCY PHYSICIAN Emergency Medicine; FAMILY PHYSICIAN Internal Medicine
PROC: BF101ZZ Fluoroscopy of Bile Ducts using Low Osmolar Contrast (ICD-10-PCS; 2024-05-31)
PROC: 0FT44ZZ Resection of Gallbladder, Percutaneous Endoscopic Approach (ICD-10-PCS; 2024-05-31)
DX: K80.00 Calculus of gallbladder with acute cholecystitis without obstruction (principal); K82.A1 Gangrene of gallbladder in cholecystitis; N18.30 Chronic kidney disease, stage 3 unspecified; E11.22 Type 2 diabetes mellitus with diabetic chronic kidney disease; F03.A0 Unspecified dementia, mild, without behavioral disturbance, psychotic disturbance, mood disturbance, and anxiety; I12.9 Hypertensive chronic kidney disease with stage 1 through stage 4 chronic kidney disease, or unspecified chronic kidney disease; R00.1 Bradycardia, unspecified; K21.9 Gastro-esophageal reflux disease without esophagitis; E03.9 Hypothyroidism, unspecified; K22.70 Barrett's esophagus without dysplasia
CPT/HCPCS: 88304; 74177; 74300; 76000; 80048; 80053; 81003; 82248; 82962; 83036; 83690; 84443; 84484; 85025; 93005; 96361; 96365; 96375; 96376; 97161; 97164; 97166; 99285; A4300; Q9967

== ENCOUNTER → 2024-09-15 09:18 | Outpatient (REF) | payer OTHER, SELFPAY | LOC: RAD 09:18 | PROVIDERS: ATTENDING PHYSICIAN Otolaryngology; FAMILY PHYSICIAN Internal Medicine | DX: R13.14 Dysphagia, pharyngoesophageal phase (principal) | CPT/HCPCS: 74230; 92611 ==

== ENCOUNTER 2024-12-21 06:18 | Day surgery (SDC) | payer OTHER, SELFPAY ==
[2024-12-21 09:07] LABS: Glucose - Point of Care 140 mg/dl (70-99)
== END 2024-12-21 10:29 | disposition home or self-care (01) ==
LOC: GI 06:18
PROVIDERS: ATTENDING PHYSICIAN Specialist
DX: R13.10 Dysphagia, unspecified (principal); B96.81 Helicobacter pylori [H. pylori] as the cause of diseases classified elsewhere; K22.70 Barrett's esophagus without dysplasia; K31.89 Other diseases of stomach and duodenum; K31.A11 Gastric intestinal metaplasia without dysplasia, involving the antrum; K31.A15 Gastric intestinal metaplasia without dysplasia, involving multiple sites
CPT/HCPCS: 43239; 82962; 88305; 88342